=== PATIENT | male | born 1945 | race Caucasian/White ===

== ENCOUNTER 2016-09-05 18:53 | Emergency (ER) | payer MEDICARE, OTHER ==
[~2016-09-05] VITALS: Ht 177.8 cm; Wt 99.8 kg
[~2016-09-05 18:53] MED LIST: CYMBALTA30 MG PO; DEXILANT60 MG PO; ELAVIL25 MG PO; FISH OIL1 GM PO; HALFPRIN81 MG PO; HYDROCHLOROTH12.5 MG PO; LINZESS145 MCG PO; MIRALAX17 GM PO; PRINIVIL10 MG PO; TRICOR145 MG PO; ZANTAC300 MG PO
== END 2016-09-05 23:50 | disposition short-term general hospital (02) ==
LOC: ER 18:53
DX: K57.32 Diverticulitis of large intestine without perforation or abscess without bleeding (principal); K52.9 Noninfective gastroenteritis and colitis, unspecified
CPT/HCPCS: J2270; J2405; Q9963; Q9967